=== PATIENT | male | born 1990 | race African-American/Black ===

== ENCOUNTER 2020-12-21 17:03 | Emergency (ER) | payer MEDICAID ==
[~2020-12-21] VITALS: Ht 182.9 cm; Wt 68.0 kg
[2020-12-21 19:26] VITALS: BP 113/68
== END 2020-12-21 19:27 | disposition home or self-care (01) ==
LOC: ER 18:57
DX: S60.222A Contusion of left hand, initial encounter (principal); W22.8XXA Striking against or struck by other objects, initial encounter; Y93.89 Activity, other specified; Y92.89 Other specified places as the place of occurrence of the external cause; Y99.8 Other external cause status
CPT/HCPCS: 73120; 99283

== ENCOUNTER 2022-10-08 23:59 | Emergency (ER) | payer MEDICAID ==
[~2022-10-08] VITALS: Ht 182.9 cm; Wt 70.5 kg
[2022-10-09 00:25] VITALS: BP 111/73
[2022-10-09] MEDS ORDERED: CEPHALEXIN 250MG CAPSULE PO ONE (01:00)
[2022-10-09] MEDS ORDERED: TETANUS, DIPHTHERIA, PERTUSSIS VAC/PF 0.5ML (>10YR OLD) IM ONE (01:00)
[2022-10-09] MEDS ORDERED: HYDROCODONE/ACETAMINOPHEN 5/325MG TABLET PO ONE (01:00)
[2022-10-09] MEDS ORDERED: BO1 TP (01:43)
[2022-10-09] MEDS ORDERED: CEPH500T MT (01:43)
[2022-10-09] MEDS ORDERED: IBUP-2029 MT (01:43)
== END 2022-10-09 01:51 | disposition home or self-care (01) ==
LOC: ER 23:59
DX: S91.312A Laceration without foreign body, left foot, initial encounter (principal); J45.909 Unspecified asthma, uncomplicated; F12.10 Cannabis abuse, uncomplicated; V49.49XA Driver injured in collision with other motor vehicles in traffic accident, initial encounter; Y93.89 Activity, other specified; Y92.89 Other specified places as the place of occurrence of the external cause; Y99.8 Other external cause status
CPT/HCPCS: 73630; 90471; 90715; 99283; Z7610

== ENCOUNTER 2023-12-28 19:30 | Emergency (ER) | payer MEDICAID ==
[~2023-12-28] VITALS: Ht 182.9 cm; Wt 81.0 kg
[~2023-12-28 19:30] MED LIST: BO1 TP; CEPH500T MT; IBUP-2029 MT
[2023-12-28 19:43] VITALS: TEMP 98.6; O2SAT 100
[2023-12-28] MEDS ORDERED: CLOB60CR4 TP (20:10)
[2023-12-28 20:22] VITALS: BP 132/70; PULSE 78; RESP 18
== END 2023-12-28 20:23 | disposition home or self-care (01) ==
LOC: ER 19:30
DX: L65.9 Nonscarring hair loss, unspecified (principal); F12.10 Cannabis abuse, uncomplicated; J45.909 Unspecified asthma, uncomplicated
CPT/HCPCS: 99283